=== PATIENT | female | born 1980 | race African-American/Black ===

== ENCOUNTER 2019-02-12 09:37 | Outpatient (CLI) | payer OTHER ==
--- NOTE | 2019-02-12 13:21 | MRI ---
MRI OF THE LEFT KNEE PERFORMED WITHOUT CONTRAST ENHANCEMENT: 02/21/19 HISTORY: Injured left knee at work. Exam quality is limited due to body habitus and inability to use a dedicated extremity coil. The anterior as well as posterior cruciate ligaments are intact. The lateral meniscus has a fairly normal shape and appearance. There is a meniscal flounce present. T he medial meniscus shows some mild truncation to the free edge of the body of the meniscus which appe ars to be more chronic. Medial and lateral collateral ligaments and iliotibial band regions appear un remarkable. Patellar articular cartilage is intact. The medial and lateral patellar retinaculum and quadriceps an d patellar tendons are unremarkable other than minimal patellar tendinosis. IMPRESSION: 1. Minimal free edge blunting to the body of the medial meniscus which appears more chronic in n ature. 2. Minimal patellar tendinosis. POS: [facility]
== END 2019-02-12 09:38 | disposition home or self-care (01) ==
LOC: SCSMRI 09:37
PROVIDERS: ATTEND Family Medicine
DX: M23.92 Unspecified internal derangement of left knee (principal); M67.864 Other specified disorders of tendon, left knee